=== PATIENT | female | born 1985 | race Caucasian/White ===

== ENCOUNTER 2018-05-09 01:21 | Emergency (ER) | payer SELFPAY, MEDICAID ==
[2018-05-09] MEDS: HYDROCODONE/APAP (10/325) TAB PO (02:09)
[2018-05-09] MEDS: LIDOCAINE 1% (MDV) 20 ML INJ SC (02:14)
[2018-05-09] MEDS: traMADol 50 MG TAB PO (03:36)
[2018-05-09] MEDS: BACITRACIN 0.9 GM OINT TOP (04:32)
== END 2018-05-09 04:39 | disposition home or self-care (01) ==
LOC: FTE 01:21
DX: L60.0 Ingrowing nail (principal)
CPT/HCPCS: 11750; 99283-25

== ENCOUNTER 2018-07-20 20:32 | Emergency (ER) | payer BC ==
[2018-07-21] MEDS: SOD CHLORIDE 0.9% 1,000 ML IV
[2018-07-21] MEDS: MECLIZINE 12.5 MG TAB PO
[2018-07-21] MEDS: ONDANSETRON 4 MG INJ IV
[2018-07-21 00:18] LABS: ADD MAN DIFF? NO
[2018-07-21 00:23] LABS: WHITE BLOOD COUNT 7.4 10^3/ul (4.8-10.8)
[2018-07-21 00:23] LABS: BASOPHILS % 0.5 % (0.0-2.0); EOSINOPHILS # 0.3 10^3/ul (0.0-0.5); EOSINOPHILS % 3.6 % (0.0-7.0); HEMATOCRIT 38.5 % (37.0-47.0); HEMOGLOBIN 12.8 g/dl (12.0-16.0); LYMPHOCYTES # 3.1 10^3/ul (0.8-2.9); LYMPHOCYTES % 41.3 % (15.0-51.0); MEAN CORPUSCULAR HGB CONC 33.2 g/dl (32.0-37.0); MEAN CORPUSCULAR VOLUME 87.3 fl (82.0-101.0); MEAN PLATELET VOLUME 9.7 fl (7.4-10.4); MONOCYTE # 0.5 10^3/ul (0.3-0.9); MONOCYTES % 6.9 % (0.0-11.0); NEUTROPHIL # 3.5 10^3/ul (1.6-7.5); NEUTROPHILS % 47.6 % (39.0-77.0); PLATELET COUNT 246 10^3/UL (140-415); RED BLOOD COUNT 4.41 10^6/ul (4.20-5.40); RED CELL DISTRIBUTION WIDTH 12.4 % (11.5-14.5)
[2018-07-21 00:28] LABS: ADD UMIC NO; UR ASCORBIC ACID NEGATIVE (NEGATIVE); UR BILIRUBIN (Dip) NEGATIVE (NEGATIVE); UR BLOOD (Dip) NEGATIVE (NEGATIVE); UR CLARITY CLEAR (CLEAR); UR COLOR STRAW (YELLOW); UR GLUCOSE (Dip) NEGATIVE (NEGATIVE); UR KETONES (Dip) NEGATIVE (NEGATIVE); UR LEUKOCYTE ESTERASE (Dip) NEGATIVE Leu/ul (NEGATIVE); UR NITRITE (Dip) NEGATIVE (NEGATIVE); UR SPECIFIC GRAVITY (Dip) 1.011 (1.003-1.030); UR TOTAL PROTEIN (Dip) NEGATIVE (NEGATIVE); UR UROBILINOGEN (Dip) NEGATIVE (NEGATIVE)
[2018-07-21 00:40] LABS: ANION GAP 11 (5-13); BLOOD UREA NITROGEN 10 mg/dl (7-20); CALCIUM 9.3 mg/dl (8.4-10.2); CARBON DIOXIDE 27 mmol/L (21-31); CHLORIDE 103 mmol/L (97-110); CREATININE 0.53 mg/dl (0.44-1.00); Estimated GFR > 60 mL/min (>60); GLUCOSE 94 mg/dl (70-220); POTASSIUM 3.6 mmol/L (3.5-5.1); SODIUM 141 mmol/L (135-144)
[2018-07-21] MEDS: LORAZEPAM 1 MG TAB PO (00:44)
[2018-07-21 01:03] LABS: INR 0.97; PARTIAL THROMBOPLASTIN TIME 26.8 Sec (23.0-35.0)
== END 2018-07-21 01:28 | disposition home or self-care (01) ==
LOC: FTE 07-21 01:28
DX: H81.10 Benign paroxysmal vertigo, unspecified ear (principal)
CPT/HCPCS: 36415; 80048; 81003; 85025; 85610; 85730; 96374; 99284-25